=== PATIENT | female | born 1990 | race African-American/Black ===

== ENCOUNTER 2016-11-29 16:36 | Emergency (ER) | payer MEDICAID, OTHER ==
[~2016-11-29] VITALS: Ht 172.7 cm; Wt 97.1 kg
[2016-11-29] MEDS ORDERED: ACETAMINOPHEN 500 MG TAB PO ONE (17:15)
[2016-11-29 18:00] VITALS: BP 110/75
== END 2016-11-29 18:38 | disposition home or self-care (01) ==
LOC: ER 16:44
DX: O99.333 Smoking (tobacco) complicating pregnancy, third trimester (principal); S39.012A Strain of muscle, fascia and tendon of lower back, initial encounter; X50.9XXA Other and unspecified overexertion or strenuous movements or postures, initial encounter; Y93.89 Activity, other specified; Y99.8 Other external cause status; Y92.69 Other specified industrial and construction area as the place of occurrence of the external cause; Z3A.29 29 weeks gestation of pregnancy
CPT/HCPCS: 76805